=== PATIENT | male | born 1990 | race Two or more races ===

== ENCOUNTER 2024-10-22 17:58 | Emergency (ER) | payer MEDICAID, OTHER | END 2024-10-22 18:35 | disposition left against medical advice (07) | LOC: ER 18:01 | DX: R22.0 Localized swelling, mass and lump, head (principal); Z53.21 Procedure and treatment not carried out due to patient leaving prior to being seen by health care provider ==

== ENCOUNTER 2025-03-31 17:21 | Emergency (ER) | payer MEDICAID ==
[~2025-03-31] VITALS: Ht 177.8 cm; Wt 114.7 kg
[2025-03-31] MEDS: TETRACAINE HCL 0.5% OPTH(EYE) SOLN 4ML LEFTEYE ONE (18:05)
[2025-03-31] MEDS: FLUORESCEIN SOD OPTH TEST STRIP ONE (18:05)
[2025-03-31] MEDS: FLUORESCEIN SOD OPTH TEST STRIP RIGHTEYE ONE (18:06)
[2025-03-31 18:08] VITALS: BP 148/78; PULSE 68; RESP 16; TEMP 97.9; O2SAT 97
[2025-03-31] MEDS ORDERED: NEOM0.1S10 RIGHTEYE (18:24)
--- NOTE | 2025-03-31 18:24 | ED.PDOC ---
Eye-HPI HPI Comments 34-year-old male presented to the [facility] [place] complaining of foreign body in the upper lid with a severe irritation started yesterday Chief Complaint: Eye Problem Time Seen by MD: 17:40 Reviewed Notes: Nurses Notes, Medications, Allergies Allergies: Coded Allergies: NO KNOWN ALLERGIES (Unverified , 03/31/25) per patient Home Meds Active Scripts Mgecwcjk-Agfybd-Dladczoh (Maxitrol) 0.1 % Tatyana, 1 DROP RIGHTEYE QID for 5 Days, #5 ML Prov:SILVESTRE WILLSON MD 03/31/25 Information Source: Patient Mode of Arrival: Ambulatory Timing: Hours Duration: Since onset Quality: Pain, Red, FB sensation, Clear Eye Location: Right, Upper Lids: Red Conjunctiva: Injection, Foreign Body, Normal Cornea: Right eye, Foreign Body Pupils: Normal EOM: Right eye, Upward, Lateral Fundus: Normal Slit lamp exam: Right eye, Flourescein stain:, Normal Onset: Spontaneous, FB Exposure Throat Exposed to: None History of: None Last Tetanus: UTD Associated signs and symptoms: Tearing, Photophobia Past Medical History PAST MEDICAL HISTORY: Denies Surgical History: Denies all surgeries Family History Family History: Reviewed,noncontributory to illness, No family hx of Cancer, No family hx of DM, No family hx of Heart maylin, No family hx of HTN, No family hx ofKidney maylin, No family hx of Liver maylin, No family hx of Lung maylin, No family hx of Stroke Social History Smoker: Cigarettes Alcohol: Occasionally Drugs: Denies Drug Use Lives In: Home Constitutional: reports: others EENTM: reports: blurred vision, eye redness, photophobia, tearing; denies: double vision, ear bleeding, ear discharge, ear drainage, ear pain, ear ringing, eye pain, hearing loss, mouth pain, mouth swelling, nasal discharge, nose bleeding, nose congestion, nose pain, throat pain, throat swelling, voice changes, others Respiratory: denies: cough, hemoptysis, orthopnea, SOB at rest, shortness of breath, SOB with excertion, stridor, wheezing, others Cardiovascular: denies: chest pain, dizzy spells, diaphoresis, Dyspnea on exertion, edema, irregular heart beat, left arm pain, lightheadedness, palpitations, PND, syncope, others Gastrointestinal: denies: abdomen distended, abdominal pain, blood streaked bowels, constipated, diarrhea, dysphagia, difficulty swallowing, hematemesis, melena, nausea, poor appetite, poor fluid intake, rectal bleeding, rectal pain, vomiting, others Genitourinary: denies: burning, dysuria, flank pain, frequency, hematuria, incontinence, penile discharge, penile sore, pain, testicle pain, testicle swe lling, urgency, others Neurological: denies: dizziness, fainting, headache, left sided numbness, left sided weakness, numbness, paresthesia, pre-existing deficit, right sided numbness, right sided weakness, seizure, speech problems, tingling, tremors, weakness, others Musculoskeletal: denies: back pain, gout, joint pain, joint swelling, muscle pain, muscle stiffness, neck pain, others Integumetry: denies: bruises, change in color, change in hair/nails, dryness, laceration, lesions, lumps, rash, wounds, others Hematologic/Lymphatic: denies: anemia, blood clots, easy bleeding, easy bruising, swollen glands, others Endocrine: denies: excessive hunger, excessive sweating, excessive thirst, excessive urination, flushing, intolerance to cold, intolerance to heat, unexplained weight gain, unexplained weight loss, others Psychiatric: denies: anxiety, bipolar disorder, depression, hopeless, panic disorder, schizophrenia, sleepless, suicidal, others Physical Exam General Appearance: Mild Distress HEENT: Eye Lid (R), Normal ENT Inspection, PERRL/EOMI, Other (Foreign body upper lid) Neck: Full Range of Motion, Non-Tender, Normal, Normal Inspection Respiratory: Chest Non-Tender, Lungs Clear, No Accessory Muscle Use, No Respiratory Distress, Normal Breath Sounds Cardiovascular: No Edema, No JVD, No Murmur, No Gallop, Normal Peripheral Pulses, Regular Rate/Rhythm Breast Exam: Deferred Gastrointestinal: No Organomegaly, Non Tender, No Pulsatile Mass, Normal Bowel Sounds, Soft Genitalia: Deferred Pelvic: Deferred Rectal: Deferred Extremities: No calf tenderness, Normal capillary refill, Normal inspection, Normal range of motion, Non-tender, No pedal edema Neurologic: Alert, overnight associate II-XII nml as Tested, No Motor Deficits, Normal Affect, Normal Mood, No Sensory Deficits Cerebellar Function: Normal Reflexes: Normal Skin: Dry, Normal Color, Warm Peripheral Pulses: 1+ carotid (R), 1+ carotid (L) Lymphatic: No Adenopathy Was a procedure done? Was a procedure done?: Yes Sedation Sedation?: No Other Procedure Procedure Foreign body right upper lid Indication Irritation pain watery Anesthetic none Success Removed after everting the upper lid and cleaning with Q-tips moist Informed consent obtained: Yes (Patient is seen have minimal sensation in the upper lid but the foreign body has been removed the conjunctiva is red the cornea does not not show any abrasions) EENT DIFF Eye: Conjunctivitis, Foreign Body-Conjunctiva, Foreign Body-Lid Ear: N/A Nose: N/A Mouth: N/A Sore Throat: N/A X-Ray, Labs, Meds, VS Vital Signs Date Time Temp Pulse Resp B/P (MAP) Pulse Ox O2 Delivery O2 Flow Rate FiO2 03/31/25 18:08 97.9 88 17 148/78 (101) 97 97.9 03/31/25 18:08 68 16 97 Room Air 03/31/25 17:38 97.8 70 18 119/71 (87) 95 97.8 X-Ray, Labs, Meds, VS Comment Course in the [employer] eventful patient came in with a foreign body sensation to the upper lid and conjunctivitis the cornea is not a breast After everted the upper lid foreign body removed with few sips Foreign body sensation still present but not as bad Patient will have an eye pack to be removed tomorrow Time of 1ST Reevaluation: 17:40 Reevaluation 1ST: Unchanged Time of 2ND Reevaluation: 18:16 Reevaluation 2ND: Improved Consultation: PCP, Other (Ophthalmology if not better) Patient Education/Counseling: Diagnosis, Treatment, Prognosis, Need For Follow Up Family Education/Counseling: Diagnosis, Treatment, Prognosis, Need For Follow Up, No Family Present SEPSIS Sepsis Screen Date sepsis recognized/suspect: Mar 31, 2025 Time Sepsis recognized/suspect: 1731 Recent Procedure: No On Antibiotic Therapy: No Respiratory Rate >20: No Heart Rate >90: No Temp<36 C (96.8 F) or >38.3 C: No SBP <90 or MAP <65 mmHG: No New Acute Mental Status Change: No Is the patient on CPAP, BIPAP,: No Vital Signs Date Time Temp Pulse Resp B/P (MAP) Pulse Ox O2 Delivery O2 Flow Rate FiO2 03/31/25 18:08 97.9 88 17 148/78 (101) 97 97.9 03/31/25 18:08 68 16 97 Room Air 03/31/25 17:38 97.8 70 18 119/71 (87) 95 97.8 Departure 1 Departure Time of Disposition: 18:26 Impression: Primary Impression: Foreign body in conjunctival sac, right eye, sequela Disposition: HOME / SELF CARE / HOMELESS Condition: Fair Additional Instructions: Keep the eye pack until tomorrow e-Prescriptions Ofjtjzxv-Tvjxsy-Zlvresen (Maxitrol) 0.1 % Tatyana 1 DROP RIGHTEYE QID for 5 Days, #5 ML Prov: SILVESTRE WILLSON MD 03/31/25 Discharged With: Self Critical Care Note Critical Care Time?: No Stability Stability form required: No Heart Score Heart Score: Heart Score Response (Comments) Value History N/A 0 EKG N/A 0 Age <45 0 Risk Factors No known risk factors 0 Troponin N/A 0 Total 0 SILVESTRE WILLSON MD Mar 31, 2025 18:24
== END 2025-03-31 18:29 | disposition home or self-care (01) ==
LOC: ER 17:21
DX: T15.11XA Foreign body in conjunctival sac, right eye, initial encounter (principal); F17.210 Nicotine dependence, cigarettes, uncomplicated; F10.90 Alcohol use, unspecified, uncomplicated; Z79.899 Other long term (current) drug therapy; W44.9XXA Unspecified foreign body entering into or through a natural orifice, initial encounter; Y93.89 Activity, other specified; Y92.89 Other specified places as the place of occurrence of the external cause; Y99.8 Other external cause status; Y90.9 Presence of alcohol in blood, level not specified